=== PATIENT | male | born 1950 | race Caucasian/White ===

== ENCOUNTER → 2016-08-30 | Outpatient (CLI) | payer MEDICARE, MEDICAID ==
[~2016-08-30] MED LIST: AMLO10TA4 PO; ASPI-867 PO; ATOR80TA76 PO; BENA5TAB PO; CARV25TA47 PO; CEPH-569 PO; CINA30 PO; FOLI0.8T23 PO; LISI-604 PO; METO25TA6 PO; PRAV40TA PO; SEVE800T PO
== END | disposition home or self-care (01) ==
LOC: RAD 09:46
PROVIDERS: ATTEND Internal Medicine Nephrology
DX: M16.12 Unilateral primary osteoarthritis, left hip (principal); M87.9 Osteonecrosis, unspecified
CPT/HCPCS: 73700